=== PATIENT | male | born 1945 | race Caucasian/White ===

== ENCOUNTER 2021-04-07 17:56 | Observation (INO) | payer MEDICARE, OTHER ==
[~2021-04-07] VITALS: Ht 175.3 cm; Wt 97.1 kg
[2021-04-07 19:20] LABS: HEMOGLOBIN 13.2 gm/dl (14.0-17.5); RED BLOOD COUNT 4.3 M/UL (4.20-5.50); WHITE BLOOD COUNT 5.8 K/UL (4.5-11.0)
[2021-04-07 19:49] LABS: BUN/CREATININE RATIO 15 (0-10)
[2021-04-08] MEDS ORDERED: NEURONTIN800 MG PO (00:50)
[2021-04-08] MEDS ORDERED: ZESTRIL5 MG PO ×2 (00:50→15:13)
[2021-04-08] MEDS ORDERED: TIZANIDINE HCL4 MG PO (00:51)
[2021-04-08] MEDS ORDERED: LIPITOR TAB 2020 MG PO (00:52)
[2021-04-08] MEDS ORDERED: DEXILANT60 MG PO (00:52)
[2021-04-08] MEDS ORDERED: OXYCODONE HCL15 MG PO (00:53)
[2021-04-08 04:25] LABS: BUN/CREATININE RATIO 14 (0-10)
[2021-04-08] MEDS ORDERED: AMLODIPINE BESYL5 MG PO (15:13)
== END 2021-04-08 16:36 | disposition home or self-care (01) ==
LOC: ER1 17:56 → CDU 20:28 → MED SURG 4 20:28
PROVIDERS: Family Medicine; ADMIT Internal Medicine
DX: R07.89 Other chest pain (principal); I25.10 Atherosclerotic heart disease of native coronary artery without angina pectoris; Z95.5 Presence of coronary angioplasty implant and graft; E78.5 Hyperlipidemia, unspecified; K21.9 Gastro-esophageal reflux disease without esophagitis; Z52.4 Kidney donor; R13.10 Dysphagia, unspecified; Z90.5 Acquired absence of kidney; N17.9 Acute kidney failure, unspecified; I13.10 Hypertensive heart and chronic kidney disease without heart failure, with stage 1 through stage 4 chronic kidney disease, or unspecified chronic kidney disease; I16.0 Hypertensive urgency; N18.9 Chronic kidney disease, unspecified; Z88.6 Allergy status to analgesic agent; Z86.16 Personal history of COVID-19; I08.2 Rheumatic disorders of both aortic and tricuspid valves
CPT/HCPCS: ECHO; 36415; 71045; 80048; 80053; 80061; 81001; 82550; 82553; 82570; 82607; 82746; 83036; 83540; 83550; 83735; 83874; 84100; 84156; 84300; 84484; 85025; 93005; 93306; 96372; 99285; G0378; J1650